=== PATIENT | male | born 1985 | race Caucasian/White ===

== ENCOUNTER 2018-07-01 17:40 | Emergency (ER) | payer BC ==
[~2018-07-01] VITALS: Ht 182.9 cm; Wt 108.9 kg
[~2018-07-01 17:40] MED LIST: BACTRIM DS TAB1 EACH PO; NOHOMEMEDICATIONS
[2018-07-01 19:54] VITALS: BP 132/94
== END 2018-07-01 19:55 | disposition home or self-care (01) ==
LOC: M.ERS 17:40
DX: S62.91XA Unspecified fracture of right hand, initial encounter for closed fracture (principal); F17.210 Nicotine dependence, cigarettes, uncomplicated; W22.8XXA Striking against or struck by other objects, initial encounter; Y93.89 Activity, other specified; Y92.89 Other specified places as the place of occurrence of the external cause; Y99.8 Other external cause status